=== PATIENT | female | born 1995 | race Caucasian/White ===

== ENCOUNTER 2020-04-30 07:00 | Day surgery (SDC) | payer OTHER ==
[~2020-04-30] VITALS: Ht 162.6 cm; Wt 79.8 kg
[2020-05-01] MEDS ORDERED: PERCOCET 5-3251 EACH PO (16:24)
[2020-05-01] MEDS ORDERED: KETO10TA2 PO (16:25)
== END 2020-05-01 10:00 | disposition home or self-care (01) ==
LOC: CIR.AMB 07:00 → ER 05-01 10:29 → SEC-K 05-01 12:51 → EDSTATUS 05-01 15:00 → SEC-K 05-01 15:15 → O/R 05-01 15:15
PROVIDERS: ATTEND Surgery
DX: K60.1 Chronic anal fissure (principal); K60.5 Anorectal fistula; Z20.822 Contact with and (suspected) exposure to COVID-19